=== PATIENT | female | born 1950 | race Caucasian/White ===

== ENCOUNTER 2020-08-16 17:23 | Emergency (ER) | payer OTHER, MEDICAID, SELFPAY ==
[~2020-08-16] VITALS: Ht 149.9 cm; Wt 94.3 kg
[~2020-08-16 17:23] MED LIST: APIX5TAB PO; CHOL400T12 PO; DEXA6TAB1 PO; DIGO0.122 PO; GLIP5TAB14 PO; INSU100I7 SQ; LISI30TA6 PO; METF850T PO; METO100T14 PO; VITC500 PO; ZINC220C28 PO
[2020-08-16 17:35] VITALS: BP 156/78
--- NOTE | 2020-08-16 17:40 | NUR ---
Patient ambulated to bed 02 with steady/even gait.
--- NOTE | 2020-08-16 18:00 | NUR ---
69 y/o F coming in from by daughter with c/c rash and itchiness. Patient presents A&Ox4, ambulatory, Ukrainian speaking and states she has been having a rash all over her body that worsens at night. Patient states itchiness to body as well. Pt came in for evaluation because she has difficulty sleeping due to the rash. Patient denies N/V, SOB, CP, cough, abdominal pain, dizziness, headache, cold-like symptoms. Patient presents in no respiratory distress at this time. Lung sounds CTA. Pt denies taking any medications for rash prior to arrival. Bed locked in lowest position, side rails x 1, call light in reach. PMH: HTN, DM2, HEART CONDITION (UNABLE TO TELL ME WHAT SPECIFICALLY) SWAPNAA
--- NOTE | 2020-08-16 18:05 | NUR ---
Dr. Irizarry is evaluating patient at bedside.
[2020-08-16] MEDS ORDERED: predniSONE 20 MG TAB PO ONE (18:20)
[2020-08-16] MEDS ORDERED: DIPH25CA94 PO (18:24)
[2020-08-16] MEDS ORDERED: PRED20TA5 PO (18:24)
--- NOTE | 2020-08-16 18:43 | NUR ---
Patient discharged with v/s stable. Written and verbal after care instructions given and explained. Patient alert, oriented and verbalized understanding of instructions. Ambulatory with steady gait. All questions addressed prior to discharge. ID band removed. Patient advised to follow up with PMD. Rx of Benadryl, Prednisone given. Patient educated on indication of medication including possible reaction and side effects. Opportunity to ask questions provided and answered.
== END 2020-08-16 18:43 | disposition home or self-care (01) ==
LOC: MED 17:23
DX: L29.9 Pruritus, unspecified (principal); E11.9 Type 2 diabetes mellitus without complications; I10 Essential (primary) hypertension; Z79.899 Other long term (current) drug therapy; Z79.84 Long term (current) use of oral hypoglycemic drugs
CPT/HCPCS: 99283; J7512; Q0163

== ENCOUNTER 2021-12-09 13:37 | Emergency (ER) | payer OTHER, MEDICAID ==
[~2021-12-09] VITALS: Ht 142.2 cm; Wt 92.5 kg
[~2021-12-09 13:37] MED LIST changes: +DIPH25CA94 PO; +METF-713 PO; -METF850T PO; +PRED20TA5 PO
[2021-12-09 14:05] VITALS: BP 134/73
--- NOTE | 2021-12-09 14:19 | NUR ---
PT AMBULATED TO BATHROOM
--- NOTE | 2021-12-09 14:26 | NUR ---
PT ATTEMPTED TO URINATE, NO URINE NOTED
--- NOTE | 2021-12-09 14:29 | NUR ---
PT AMBULATED TO BED 5 WITH STEADY GAIT
--- NOTE | 2021-12-09 14:34 | NUR ---
Desmond vega in [facility] - 12/09/21 at [address] VILLALOBOS AT [facility] FOR EVAL
--- NOTE | 2021-12-09 14:35 | NUR ---
DR VILLALOBOS AT BEDSIDE
--- NOTE | 2021-12-09 14:52 | NUR ---
71 Y/O FEMALE C/O GEN ABD PAIN AND CONSTIPATION X 3DAYS. PT REPORTS 9/10 PRESSURE PAIN TO ABDOMEN THAT RADIATES TO LEGS. DENIES N/V. ABDOMEN DISTENDED AND TENDER TO TOUCH. BOWEL SOUNDS HEARD IN ALL QUADRANTS. PER PT, SHE HAS HAD A "HERNIA". AO X 4 FRISIAN SPEAKING, RESPIRATIONS EVEN AND UNLABORED. 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 NKA PMH: DM, HTN, ARTHRITIS, "HERNIA"
--- NOTE | 2021-12-09 15:30 | NUR ---
PT TRANSPORTED TO CT VIA WC
[2021-12-09 15:31] LABS: ALBUMIN 3.6 g/dL (3.4-5.0); ANION GAP 12.2 (8-16); CARBON DIOXIDE 29.4 mmol/L (21-32); CREATININE 1.4 mg/dL (0.6-1.3); POTASSIUM 3.6 mmol/L (3.5-5.1); TOTAL BILIRUBIN 0.7 mg/dL (0.0-1.0)
[2021-12-09 15:35] LABS: BASOPHILS # (AUTO) 0.1 K/uL (0.00-0.22); BASOPHILS % (AUTO) 0.5 % (0.0-2.0); EOSINOPHILS # (AUTO) 0.1 K/uL (0-0.4); HEMATOCRIT 50.1 % (36-48); HEMOGLOBIN 16.6 g/dL (12.0-16.0); LYMPHOCYTES # (AUTO) 1.2 K/uL (2.5-16.5); LYMPHOCYTES % (AUTO) 11.4 % (20.5-51.1); MEAN CORPUSCULAR HEMOGLOBIN 30 pg (27-31); MEAN CORPUSCULAR HGB CONC 33 g/dL (33-37); MEAN CORPUSCULAR VOLUME 91.2 fL (80-94); MONOCYTES # (AUTO) 0.6 K/uL (0.8-1.0); MONOCYTES % (AUTO) 5.5 % (1.7-9.3); NEUTROPHILS # (AUTO) 8.5 K/uL (1.8-7.7); NEUTROPHILS % (AUTO) 81.6 % (42.2-75.2); PLATELET COUNT (AUTO) 249 K/uL (140-450); RED BLOOD CELL COUNT(AUTO) 5.49 MIL/uL (4.20-5.40); RED CELL DISTRIBUTION WIDTH 15.7 % (11.6-13.7); WHITE BLOOD COUNT (AUTO) 10.5 K/uL (4.8-10.8)
[2021-12-09] MEDS ORDERED: MINERAL OIL 135 ML ENEM RC ONE (15:55)
[2021-12-09] MEDS ORDERED: GLYCERIN ADULT 1 SUPP RC ONE (15:55)
--- NOTE | 2021-12-09 16:33 | NUR ---
GIVEN ENEMA AND GLYCEROL, INFORMED PT TO GO TO BATHROOM WHEN URGE IS FELT, PT TOLERATED PROCEDURE WELL
--- NOTE | 2021-12-09 16:50 | NUR ---
PT AMBULATED TO RESTROOM WITH STEADY GAIT.
[2021-12-09] MEDS ORDERED: NA P135N RC (16:54)
[2021-12-09] MEDS ORDERED: MAGN296S2 PO (16:54)
[2021-12-09] MEDS ORDERED: GLYPS RC (16:54)
[2021-12-09 17:09] VITALS: BP 122/70
--- NOTE | 2021-12-09 17:10 | NUR ---
Patient discharged with v/s stable. Written and verbal after care instructions ABOUT CONSTIPATION given and explained. Patient alert, oriented and verbalized understanding of instructions. Ambulatory with steady gait. All questions addressed prior to discharge. ID band removed. Patient advised to follow up with PMD. Rx of MAGNESIUM CITRATE, FLEET ENEMA 135, GLYCERIN given. Patient educated on indication of medication including possible reaction and side effects. Opportunity to ask questions provided and answered.
== END 2021-12-09 17:10 | disposition home or self-care (01) ==
LOC: MED 13:37
DX: I10 Essential (primary) hypertension (principal); E11.9 Type 2 diabetes mellitus without complications; Z79.4 Long term (current) use of insulin; Z79.899 Other long term (current) drug therapy; K46.0 Unspecified abdominal hernia with obstruction, without gangrene
CPT/HCPCS: 36415; 80053; 81002; 85025; 99284